=== PATIENT | female | born 1990 | race Caucasian/White ===

== ENCOUNTER 2017-01-25 09:48 | Emergency (ER) | payer SELFPAY ==
[~2017-01-25] VITALS: Ht 162.6 cm; Wt 63.6 kg
[~2017-01-25 09:48] MED LIST: AMOXICILLIN 50500 MG PO; CLARITIN 1010 MG/TAB PO; GENTLE EXPRESSI1 CRE; MOTRIN 600600 MG/TAB PO; MOTRIN 800800 MG/TAB PO; NO HOME MEDICATIONS; PERCOCET 325 MG1 TA2 PO; PRENATAL VITAMI1 TA5 PO; PRENATAL1 TA1 PO; SENOKOT S 50 MG1 TAB PO; TYLENOL #3 301 UDTAB PO; ZITHROMAX 250M250 MG PO
[2017-01-25 09:58] VITALS: BP 119/75; PULSE 95; TEMP 98.7
[2017-01-25] MEDS ORDERED: PEN-VEE K500 MG PO (10:51)
== END 2017-01-25 11:05 | disposition home or self-care (01) ==
LOC: COL.ER 09:48
DX: J02.9 Acute pharyngitis, unspecified (principal)

== ENCOUNTER 2018-04-04 09:45 | Emergency (ER) | payer SELFPAY ==
[~2018-04-04] VITALS: Ht 162.6 cm; Wt 72.7 kg
[~2018-04-04 09:45] MED LIST changes: +PEN-VEE K500 MG PO
[2018-04-04] MEDS ORDERED: ZITHROMAX Z PA250 MG PO (11:51)
[2018-04-04 12:01] VITALS: BP 122/66; PULSE 114; TEMP 100.8
== END 2018-04-04 12:38 | disposition home or self-care (01) ==
LOC: COL.ER 09:45
DX: J18.9 Pneumonia, unspecified organism (principal); F17.200 Nicotine dependence, unspecified, uncomplicated; Z98.890 Other specified postprocedural states

== ENCOUNTER 2023-09-25 12:26 | Outpatient (CLI) | payer BC ==
[~2023-09-25] VITALS: Ht 162.6 cm; Wt 81.5 kg
[2023-09-25] VITALS (7 sets, daily range): BP systolic 117–146; BP diastolic 78–95; PULSE 76–82; TEMP 98
[~2023-09-25 12:26] MED LIST changes: +ZITHROMAX Z PA250 MG PO
[2023-09-25] MEDS ORDERED: PROZAC 20MG20 MG PO (12:58)
[2023-09-25 14:49] LABS: GLUCOSE,CSF 55 mg/dL (40-70); TOTAL PROTEIN,CSF 25 mg/dL (15-45)
[2023-09-25 14:50] LABS: CSF APPEARANCE CLEAR; CSF COLOR COLORLESS; CSF RBC 0 /mm3 (0-0)
--- NOTE | 2023-09-25 16:01 | NUR ---
Pt ambulates to restroom with steady gait. Bandaid remains clean, dry and intact. No c/o headache or other complaints. Pt has drank orange juice and soda during recovery period. Awaiting arrival of her son for ride home.
--- NOTE | 2023-09-25 16:10 | NUR ---
DC instructions were reviewed with pt, she expressed understanding. Bandaid remains clean, dry and intact. Pt assisted out by wheelchair to family's car for ride home. She remains free of complaints at discharge.
[2023-09-25 16:55] LABS: CSF MONONUCLEAR 0 % (70-100); CSF POLYMORPHONUCLEAR 100 % (0-6)
== END 2023-09-25 16:10 | disposition home or self-care (01) ==
LOC: COL.RAD 12:26
PROVIDERS: Nurse Practitioner
DX: R90.89 Other abnormal findings on diagnostic imaging of central nervous system (principal)